=== PATIENT | female | born 1975 | race Caucasian/White ===

== ENCOUNTER → 2024-01-27 | Day surgery (SDC) | payer BC ==
[~2024-01-27] VITALS: Ht 154.9 cm; Wt 86.2 kg
[~2024-01-27] MED LIST: BUPR150T12 PO; CARB25TA9 PO; HYDR-3490 PO; LEXA1TAB2 PO; LIDOCAINE 2% 100MG/5ML SDV (FOR ANES.) As Ordered ONE; MONT10TA97 PO; propofoL 200 MG/20 ML VIAL As Ordered ONE
[2024-01-27] MEDS: NS 1,000 ML IV ONE (07:06)
[2024-01-27 08:10] VITALS: BP 154/98; TEMP 97.4; O2SAT 99
== END | disposition home or self-care (01) ==
LOC: M OPP 06:43
PROVIDERS: ATTEND Surgery
DX: Z12.11 Encounter for screening for malignant neoplasm of colon (principal); Z79.899 Other long term (current) drug therapy